=== PATIENT | female | born 1980 | race Asian ===

== ENCOUNTER 2022-07-28 17:07 | Emergency (ER) | payer MEDICARE, OTHER ==
[~2022-07-28] VITALS: Ht 152.4 cm; Wt 54.4 kg
[2022-07-28] MEDS ORDERED: levETIRAcetam IV 1,000 MG in IV DEXTROSE 5% 100 ML IV STA (17:21)
[2022-07-28] MEDS ORDERED: IV NORMAL SALINE 1000 ML BAG IV ONE (17:30)
--- NOTE | 2022-07-28 19:14 | NUR ---
Endorsed to Suzanne YOUNG.
[2022-07-28 19:49] VITALS: BP 120/71
--- NOTE | 2022-07-28 19:49 | NUR ---
Patient discharged to home in stable condition. Written and verbal after care instructions given. Patient verbalizes understanding of instructions. Stressed follow up or return to ER for worsening s/s. Patient is a/ox4, NAD noted. Patient is able to walk with steady gait
== END 2022-07-28 19:50 | disposition home or self-care (01) ==
LOC: ER 17:07
DX: G40.909 Epilepsy, unspecified, not intractable, without status epilepticus (principal)
CPT/HCPCS: 99284; 96374; 96361; J1953; J7040; A4663

== ENCOUNTER 2023-03-03 17:23 | Emergency (ER) | payer MEDICARE, OTHER ==
[~2023-03-03] VITALS: Ht 152.4 cm; Wt 46.7 kg
[2023-03-03] MEDS ORDERED: IV NORMAL SALINE 1000 ML BAG IV ONE (17:45)
[2023-03-03] MEDS ORDERED: levETIRAcetam IV 500 MG in IV DEXTROSE 5% 100 ML IV ONE (18:00)
[2023-03-03 18:17] LABS: HEMATOCRIT 41.3 % (31.2-41.9); MEAN CORPUSCULAR HEMOGLOBIN 28.4 uug (24.7-32.8); MEAN CORPUSCULAR VOLUME 86.2 fL (75.5-95.3); PLATELET COUNT (AUTO) 243 K/uL (179-408)
[2023-03-03 18:30] LABS: CREATININE 0.8 mg/dL (0.6-1.3); POTASSIUM 3.3 mmol/L (3.5-5.1)
--- NOTE | 2023-03-03 18:30 | NUR ---
Pt resting in gurney in ER Rm 2A with no s/s of acute distress noted at this time. Mother at bedside.
[2023-03-03 18:36] LABS: BILIRUBIN,TOTAL 0.4 mg/dL (0.2-1.0); MAGNESIUM 2.1 mg/dL (1.8-2.4); PHOSPHOROUS 2.5 mg/dL (2.5-4.9); TOTAL PROTEIN, SERUM 7.1 g/dL (6.4-8.2)
[2023-03-03 18:38] LABS: ACETAMINOPHEN < 10.0 ug/mL (10-30); CREATINE KINASE, TOTAL 228 U/L (26-192)
--- NOTE | 2023-03-03 19:16 | NUR ---
Recieved report from Dunia YOUNG.
[2023-03-03 19:53] LABS: *BILIRUBIN,URIN NEGATIVE (NEGATIVE); *BLOOD, URINE NEGATIVE (NEGATIVE); *KETONES,URINE NEGATIVE (NEGATIVE); *UROBILINOGEN,URINE 0.2 E.U./dl (NORMAL); LEUKOCYTE ESTERASE ,URINE 1+ (NEGATIVE); NITRITE, URINE NEGATIVE (NEGATIVE); PH,URINE 5.5 (5.0-8.0); UGLUCOSE NEGATIVE (NEGATIVE)
[2023-03-03 19:54] LABS: *CLARITY,URINE SLIGHTLY CLOUDY (CLEAR); *COLOR,URINE LIGHT YELLOW (YELLOW)
[2023-03-03 19:56] LABS: *URINE HCG, QUAL NEGATIVE (NEGATIVE)
[2023-03-03 20:01] LABS: *AMPHETAMINE, URINE NEGATIVE (NEGATIVE); *CANNABINOID, URINE NEGATIVE (NEGATIVE); *COCCAINE, URINE NEGATIVE (NEGATIVE); *PHENCYCLIDINE SCREEN,URINE NEGATIVE (NEGATIVE)
[2023-03-03 20:05] LABS: BACTERIA,URINE MODERATE /HPF (NONE SEEN); RBC,URINE 0-3 /HPF (0-3); SQUAMOUS EPITHELIAL CELL,UR MODERATE /HPF (NONE SEEN); WBC,URINE 20-50 /HPF (0-3)
[2023-03-03] MEDS ORDERED: CEFTRIAXONE 1 G in IV DEXTROSE 5% 50 ML IV ONE (21:00)
[2023-03-03] MEDS ORDERED: CEFTRIAXONE /D5W 50ML IVPB **ER PYXIS IV ONE (21:21)
[2023-03-03] MEDS ORDERED: NITR100C11 PO (21:43)
--- NOTE | 2023-03-03 22:00 | NUR ---
Patient discharged to home in stable condition. Written and verbal after care instructions given. Patient verbalizes understanding of instructions. Stressed follow up or return to ER for worsening s/s. Patient walked out with steady gait accompainied by mother.
[2023-03-03 22:33] VITALS: BP 109/66; TEMP 97.5; O2SAT 99
== END 2023-03-03 22:20 | disposition home or self-care (01) ==
LOC: ER 17:23
DX: G40.909 Epilepsy, unspecified, not intractable, without status epilepticus (principal); R07.89 Other chest pain; Z79.899 Other long term (current) drug therapy; Z20.822 Contact with and (suspected) exposure to COVID-19
CPT/HCPCS: 80053; 81001; 82248; 82550; 84703; 83735; 84100; 85025; 87426; 84484; 36415; 93005; 71045; 70450; 99285; 96361; 96365; 96367; 83605 ×2; 87040; 80299; 80320; 80307; J0696; J1953; J7040; A4663; G0480

== ENCOUNTER 2023-04-07 16:44 | Emergency (ER) | payer MEDICARE, OTHER ==
[~2023-04-07] VITALS: Ht 152.4 cm; Wt 47.6 kg
[~2023-04-07 16:44] MED LIST: NITR100C11 PO
[2023-04-07] MEDS ORDERED: IV NORMAL SALINE 500 ML BAG IV ONE (17:00)
[2023-04-07 17:19] LABS: BASOPHILS % (AUTO) 0.5 % (0.0-2.0); EOSINOPHILS # (AUTO) 0.1 K/uL (0.0-0.7); EOSINOPHILS % (AUTO) 1.8 % (0.0-7.0); HEMATOCRIT 43.5 % (31.2-41.9); HEMOGLOBIN 14.2 g/dL (10.9-14.3); MEAN CORPUSCULAR HEMOGLOBIN 28.2 uug (24.7-32.8); MEAN CORPUSCULAR HGB CONC 33 g/dL (32.3-35.6); MEAN CORPUSCULAR VOLUME 86.6 fL (75.5-95.3); MONOCYTES # (AUTO) 0.5 K/uL (0.1-1.30); MONOCYTES % (AUTO) 6.2 % (0.0-11.0); NEUTROPHILS % (AUTO) 65.5 % (38.5-71.5); PLATELET COUNT (AUTO) 223 K/uL (179-408); RED BLOOD CELL COUNT(AUTO) 5.03 MIL/uL (3.63-4.92); RED CELL DISTRIBUTION WIDTH 13.2 % (12.3-17.7); WHITE BLOOD COUNT (AUTO) 7.7 K/uL (3.8-11.8)
[2023-04-07 17:21] LABS: DIFFERENTIAL COMMENT 1
[2023-04-07 17:51] LABS: CREATININE 0.7 mg/dL (0.6-1.3); POTASSIUM 3.6 mmol/L (3.5-5.1)
[2023-04-07 17:55] LABS: CALCIUM 8.5 mg/dL (8.5-10.1)
[2023-04-07 18:12] VITALS: BP 110/70; TEMP 97; O2SAT 100
== END 2023-04-07 18:12 | disposition home or self-care (01) ==
LOC: ER 16:44
DX: R56.9 Unspecified convulsions (principal); R10.2 Pelvic and perineal pain; Z79.899 Other long term (current) drug therapy
CPT/HCPCS: 99283; 80048; 85025; 84702; 36415; J7040; A4663

== ENCOUNTER 2024-07-26 08:40 | Emergency (ER) | payer MEDICARE, OTHER ==
[~2024-07-26] VITALS: Ht 152.4 cm; Wt 56.7 kg
[2024-07-26] MEDS ORDERED: LEVE500T9 PO (09:02)
[2024-07-26] MEDS ORDERED: FOLI1TAB27 PO (09:02)
[2024-07-26] MEDS ORDERED: ZONI100C31 PO (09:02)
[2024-07-26 09:10] LABS: BASOPHILS % (AUTO) 0.3 % (0.0-2.0); EOSINOPHILS % (AUTO) 0.1 % (0.0-7.0); HEMATOCRIT 43.3 % (31.2-41.9); HEMOGLOBIN 14.8 g/dL (10.9-14.3); LYMPHOCYTES % (AUTO) 9.7 % (20.5-51.5); MEAN CORPUSCULAR HEMOGLOBIN 29.7 uug (24.7-32.8); MEAN CORPUSCULAR HGB CONC 34 g/dL (32.3-35.6); MEAN CORPUSCULAR VOLUME 87.1 fL (75.5-95.3); MONOCYTES # (AUTO) 0.3 K/uL (0.1-1.30); MONOCYTES % (AUTO) 2.9 % (0.0-11.0); NEUTROPHILS # (AUTO) 8.7 K/uL (1.8-8.9); PLATELET COUNT (AUTO) 227 K/uL (179-408); RED BLOOD CELL COUNT(AUTO) 4.97 MIL/uL (3.63-4.92); RED CELL DISTRIBUTION WIDTH 12.5 % (12.3-17.7)
[2024-07-26] MEDS ORDERED: ONDANSETRON 4 MG/2 ML VIAL ONE (09:12)
[2024-07-26 09:13] LABS: DIFFERENTIAL COMMENT 1
[2024-07-26] MEDS: ONDANSETRON 4 MG/2 ML VIAL IV ONE (09:16)
[2024-07-26 09:35] LABS: CREATININE 0.8 mg/dL (0.6-1.3); POTASSIUM 4.5 mmol/L (3.5-5.1)
[2024-07-26 10:43] LABS: *BILIRUBIN,URIN NEGATIVE (NEGATIVE); *BLOOD, URINE NEGATIVE (NEGATIVE); *CLARITY,URINE CLEAR (CLEAR); *COLOR,URINE YELLOW (YELLOW); *KETONES,URINE NEGATIVE (NEGATIVE); *PROTEIN,URINE NEGATIVE (NEGATIVE); *UROBILINOGEN,URINE 0.2 E.U./dl (NORMAL); LEUKOCYTE ESTERASE ,URINE 1+ (NEGATIVE); NITRITE, URINE NEGATIVE (NEGATIVE); UGLUCOSE NEGATIVE (NEGATIVE)
[2024-07-26 10:55] LABS: BACTERIA,URINE FEW /HPF (NONE SEEN); SQUAMOUS EPITHELIAL CELL,UR FEW /HPF (NONE SEEN); WBC,URINE 20-50 /HPF (0-3)
[2024-07-26 10:56] LABS: *URINE HCG, QUAL NEGATIVE (NEGATIVE)
[2024-07-26] MEDS ORDERED: ONDA4TAB11 PO (11:13)
[2024-07-26] MEDS ORDERED: NITR100C11 PO (11:13)
[2024-07-26 11:28] VITALS: BP 109/77; O2SAT 99
== END 2024-07-26 11:29 | disposition home or self-care (01) ==
LOC: ER 08:40
DX: G40.909 Epilepsy, unspecified, not intractable, without status epilepticus (principal); N39.0 Urinary tract infection, site not specified; R10.2 Pelvic and perineal pain; R11.0 Nausea; Z79.899 Other long term (current) drug therapy; Z60.2 Problems related to living alone
CPT/HCPCS: 99285; 96374; 80048; 81001; 84703; 85025; 36415; 93005; J2405; A4606; A4663

== ENCOUNTER 2024-09-27 12:12 | Emergency (ER) | payer MEDICARE, OTHER ==
[~2024-09-27] VITALS: Ht 160 cm; Wt 61.2 kg
[~2024-09-27 12:12] MED LIST changes: +FOLI1TAB27 PO; +LEVE500T9 PO; +ONDA4TAB11 PO; +ZONI100C31 PO
[2024-09-27] MEDS ORDERED: levETIRAcetam 250 MG TABLET ONE (12:57)
[2024-09-27] MEDS: levETIRAcetam 250 MG TABLET PO ONE (13:00)
[2024-09-27 13:20] LABS: BASOPHILS % (AUTO) 0.2 % (0.0-2.0); EOSINOPHILS % (AUTO) 0.2 % (0.0-7.0); HEMATOCRIT 43.4 % (31.2-41.9); HEMOGLOBIN 14.1 g/dL (10.9-14.3); LYMPHOCYTES # (AUTO) 1.6 K/uL (0.8-4.8); LYMPHOCYTES % (AUTO) 12.3 % (20.5-51.5); MEAN CORPUSCULAR HEMOGLOBIN 28.6 uug (24.7-32.8); MEAN CORPUSCULAR HGB CONC 33 g/dL (32.3-35.6); MEAN CORPUSCULAR VOLUME 87.8 fL (75.5-95.3); MONOCYTES # (AUTO) 0.6 K/uL (0.1-1.30); MONOCYTES % (AUTO) 4.5 % (0.0-11.0); NEUTROPHILS # (AUTO) 10.6 K/uL (1.8-8.9); NEUTROPHILS % (AUTO) 82.8 % (38.5-71.5); PLATELET COUNT (AUTO) 193 K/uL (179-408); RED BLOOD CELL COUNT(AUTO) 4.95 MIL/uL (3.63-4.92); WHITE BLOOD COUNT (AUTO) 12.8 K/uL (3.8-11.8)
[2024-09-27 13:29] LABS: CALCIUM 8.3 mg/dL (8.5-10.1); CARBON DIOXIDE 21 mmol/L (21-32); CHLORIDE 110 mmol/L (98-107); CREATININE 0.9 mg/dL (0.6-1.3); GLUCOSE 110 mg/dL (74-106); POTASSIUM 3.5 mmol/L (3.5-5.1); SODIUM SERUM 142 mmol/L (136-145); UREA NITROGEN, BLOOD 21 mg/dL (7-18)
[2024-09-27 13:39] LABS: DIFFERENTIAL COMMENT 1
[2024-09-27 13:40] LABS: PREGNANCY TEST SERUM QUAN < 1 miul/L (0-6)
[2024-09-27 13:41] LABS: ALANINE AMINOTRANSFERASE 14 U/L (14-59); ALBUMIN 3.4 g/dL (3.4-5.0); ALKALINE PHOSPHATASE 93 U/L (50-136); ASPARTATE AMINOTRANSFERASE 24 U/L (15-37); BILIRUBIN,DIRECT 0.1 mg/dL (0.0-0.2); BILIRUBIN,TOTAL 0.4 mg/dL (0.2-1.0); TOTAL PROTEIN, SERUM 7.1 g/dL (6.4-8.2)
[2024-09-27 14:50] VITALS: BP 101/63; TEMP 98.7; O2SAT 98
== END 2024-09-27 14:50 | disposition home or self-care (01) ==
LOC: ER 12:12
DX: R56.9 Unspecified convulsions (principal); F20.9 Schizophrenia, unspecified; F31.9 Bipolar disorder, unspecified; R10.2 Pelvic and perineal pain; G89.29 Other chronic pain; Z79.899 Other long term (current) drug therapy; Z60.2 Problems related to living alone
CPT/HCPCS: 36415; 70450; 72125; 85025; 85730; A4606; A4663

== ENCOUNTER 2024-12-27 11:33 | Emergency (ER) | payer MEDICARE, OTHER ==
[~2024-12-27] VITALS: Ht 152.4 cm; Wt 56.7 kg
[2024-12-27] MEDS ORDERED: ONDANSETRON ODT 4 MG TAB.RAPDIS ONE (12:06)
[2024-12-27] MEDS: ONDANSETRON ODT 4 MG TAB.RAPDIS SL ONE (12:07)
[2024-12-27 12:13] LABS: BASOPHILS % (AUTO) 0.4 % (0.0-2.0); DIFFERENTIAL COMMENT 1; EOSINOPHILS # (AUTO) 0.1 K/uL (0.0-0.7); EOSINOPHILS % (AUTO) 1.5 % (0.0-7.0); HEMATOCRIT 45.6 % (31.2-41.9); HEMOGLOBIN 14.8 g/dL (10.9-14.3); LYMPHOCYTES % (AUTO) 23.2 % (20.5-51.5); MEAN CORPUSCULAR HEMOGLOBIN 28.3 uug (24.7-32.8); MEAN CORPUSCULAR HGB CONC 32 g/dL (32.3-35.6); MEAN CORPUSCULAR VOLUME 87.4 fL (75.5-95.3); MONOCYTES # (AUTO) 0.4 K/uL (0.1-1.30); MONOCYTES % (AUTO) 4.2 % (0.0-11.0); NEUTROPHILS % (AUTO) 70.7 % (38.5-71.5); PLATELET COUNT (AUTO) 214 K/uL (179-408); RED BLOOD CELL COUNT(AUTO) 5.22 MIL/uL (3.63-4.92); RED CELL DISTRIBUTION WIDTH 13.4 % (12.3-17.7); WHITE BLOOD COUNT (AUTO) 8.5 K/uL (3.8-11.8)
[2024-12-27 12:25] LABS: ALBUMIN 3.4 g/dL (3.4-5.0); BILIRUBIN,DIRECT 0.1 mg/dL (0.0-0.2); BILIRUBIN,TOTAL 0.4 mg/dL (0.2-1.0); CALCIUM 8.7 mg/dL (8.5-10.1); CREATININE 0.8 mg/dL (0.6-1.3); POTASSIUM 3.6 mmol/L (3.5-5.1)
[2024-12-27 13:27] LABS: *BILIRUBIN,URIN NEGATIVE (NEGATIVE); *CLARITY,URINE CLOUDY (CLEAR); *COLOR,URINE YELLOW (YELLOW); *KETONES,URINE NEGATIVE (NEGATIVE); *PROTEIN,URINE NEGATIVE (NEGATIVE); *UROBILINOGEN,URINE 0.2 E.U./dl (NORMAL); LEUKOCYTE ESTERASE ,URINE 3+ (NEGATIVE); NITRITE, URINE NEGATIVE (NEGATIVE); PH,URINE 5.5 (5.0-8.0); UGLUCOSE NEGATIVE (NEGATIVE)
[2024-12-27 13:30] LABS: *BLOOD, URINE TRACE (NEGATIVE)
[2024-12-27 13:31] LABS: *URINE HCG, QUAL NEGATIVE (NEGATIVE); BACTERIA,URINE MODERATE /HPF (NONE SEEN); SQUAMOUS EPITHELIAL CELL,UR FEW /HPF (NONE SEEN); WBC,URINE 80-100 /HPF (0-3)
[2024-12-27] MEDS ORDERED: IOHEXOL 300MG/ML 100 ML INFUS..BTL ONE (13:57)
[2024-12-27] MEDS ORDERED: SWABABLE VALVE TRANSFER SET EA MC ONE (13:58)
[2024-12-27] MEDS ORDERED: IV NORMAL SALINE 250 ML IV ONE (13:58)
[2024-12-27 18:04] VITALS: BP 119/66; O2SAT 98
== END 2024-12-27 18:04 | disposition home or self-care (01) ==
LOC: ER 11:33
DX: R10.33 Periumbilical pain (principal); R11.0 Nausea; G40.909 Epilepsy, unspecified, not intractable, without status epilepticus; F20.9 Schizophrenia, unspecified; Z60.2 Problems related to living alone; Z79.899 Other long term (current) drug therapy
CPT/HCPCS: 99285; 74177; 80076; 80048; 81001; 84703; 83690; 85025; 87086; 36415; 74018; Q9967; A4606; A4663; Q0162